=== PATIENT | male | born 1980 | race Caucasian/White ===

== ENCOUNTER 2018-03-17 18:34 | Emergency (ER) | payer OTHER | END 2018-03-17 21:05 | disposition home or self-care (01) | LOC: TRA 18:34 | DX: Z04.1 Encounter for examination and observation following transport accident (principal); V49.9XXA Car occupant (driver) (passenger) injured in unspecified traffic accident, initial encounter | CPT/HCPCS: 80048; 81003; 82150; 83690; 85025; 86850; 86900; 86901; 93005; 99281; 99283; G0480; J0330; J1170; J3010 ==